=== PATIENT | male | born 1985 | race Hispanic/Latino ===

== ENCOUNTER 2023-04-16 19:30 | Emergency (ER) | payer SELFPAY ==
[2023-04-16] MEDS ORDERED: Ibuprofen 200 MG TAB ONE (20:59)
[2023-04-16] MEDS ORDERED: Ondansetron ODT 4 MG TAB ONE (20:59)
[2023-04-16 21:26] LABS: SARS-CoV-2 NAA Rapid Test Not Detected (NotDetected)
== END 2023-04-16 22:56 | disposition home or self-care (01) ==
LOC: CSHERS 19:30
DX: J06.9 Acute upper respiratory infection, unspecified (principal); R51.9 Headache, unspecified; R11.2 Nausea with vomiting, unspecified; F17.210 Nicotine dependence, cigarettes, uncomplicated
CPT/HCPCS: 71045; 93005; Q0162

== ENCOUNTER 2024-10-22 17:52 | Emergency (ER) | payer SELFPAY ==
[2024-10-22 18:59] LABS: ALT (SGPT) 30 U/L (Less than 45); AST (SGOT) 21 U/L (11-34); Albumin 3.8 g/dL (3.1-4.5); Alkaline Phosphatase 86 U/L (40-110); Anion Gap 10 mmol/L (10-20); BUN (Urea Nitrogen) 22 mg/dL (8.9-20.6); Bilirubin, Total 0.2 mg/dL (0.3-1.2); Calc. Creatinine Clearance 0 mL/min (70-130); Calcium 8.8 mg/dL (7.8-10.44); Carbon Dioxide 28 mmol/L (22-29); Chloride 107 mmol/L (98-107); Globulin 3.0 g/dL (2.4-3.5); Glucose 105 mg/dL (70-105); Lipase 25 U/L (8-78); Potassium 4.0 mmol/L (3.5-5.1); Sodium 141 mmol/L (136-145)
[2024-10-22 19:12] LABS: Glucose, Urine (Dipstick) Normal (Negative); Leukocyte Negative (Negative); Protein, Urine (Dipstick) 100 mg/dl (Neg-Trace); Specific Gravity, Urine 1.010 (1.005-1.030)
[2024-10-22 19:14] LABS: #Basophils 0.05 10x3/uL (0.0-0.2); #Eosinophils 0.57 10x3/uL (0.0-0.5); #Monocytes 0.45 10x3/uL (0.0-1.1); #Neutrophils 3.71 10x3/uL (1.5-8.4); %Basophils 0.7 % (0.0-2.0); %Eosinophils 7.6 % (0.0-6.0); %Lymphocytes 35.6 % (18.0-47.0); %Monocytes 6.0 % (0.0-10.0); %Neutrophils 49.2 % (40.0-75.0); Hematocrit 43.2 % (38.8-50.0); Hemoglobin 14.9 g/dL (13.5-17.5); Mean Corpuscular Hemoglobin 29.3 pg (27.0-33.0); Mean Corpuscular Volume 84.9 fL (81.2-95.1); Platelet Count 174 10x3/uL (150-450); Red Blood Cell (RBC) Count 5.09 10x6/uL (4.32-5.72); White Blood Cell (WBC) Count 7.53 10x3/uL (3.5-10.5)
[2024-10-22 19:44] LABS: Magnesium 1.9 mg/dL (1.6-2.6)
[2024-10-22 19:52] LABS: Bacteria/HPF None Seen HPF (None Seen); CAUTI Indications for Culture Pelvic or flank pain; RBC/HPF None Seen HPF (0-3); Urine Culture Reflex No No; WBC/HPF 0-3 HPF (0-3)
[2024-10-22 22:34] LABS: Anion Gap 9 mmol/L (10-20); BUN (Urea Nitrogen) 21 mg/dL (8.9-20.6); Calc. Creatinine Clearance 0 mL/min (70-130); Calcium 8.1 mg/dL (7.8-10.44); Carbon Dioxide 22 mmol/L (22-29); Chloride 112 mmol/L (98-107); Glucose 109 mg/dL (70-105); Potassium 3.8 mmol/L (3.5-5.1); Sodium 139 mmol/L (136-145)
== END 2024-10-22 23:07 | disposition home or self-care (01) ==
LOC: CSHERS 17:52
DX: N17.9 Acute kidney failure, unspecified (principal); E86.0 Dehydration; F17.210 Nicotine dependence, cigarettes, uncomplicated; Z75.8 Other problems related to medical facilities and other health care
CPT/HCPCS: 36415; 74176; 80053; 81001; 83605; 83690; 83735; 85025; J2270; Q0164